=== PATIENT | female | born 1955 ===

== ENCOUNTER → 2022-02-02 12:43 | Outpatient (CLI) | payer SELFPAY ==
--- NOTE | ~2022-02-02 | US_ITS ---
US right upper quadrant INDICATION: Elevated liver function tests. Indigestion. PROCEDURE: Realtime right upper abdominal ultrasound. COMPARISON: No prior studies for comparison. FINDINGS: The pancreas is normal without focal mass or pancreatic ductal dilation. Liver echotexture is normal without focal mass or intrahepatic biliary dilatation. There is normal directional flow i n the portal vein. There is gallbladder sludge. No gallstones. No gallbladder wall thickening or pericholecystic fluid. Common bile duct measures 4 mm. No sonographic Pretty's sign. IMPRESSION: 1: Gallbladder sludge. Reviewed, dictated and finalized at location B. IMPRESSION: 1: Gallbladder sludge.
== END ==
PROVIDERS: PCP Family Medicine; Visit Provider Family Medicine
DX: R79.89 Other specified abnormal findings of blood chemistry (principal)
CPT/HCPCS: 76705